=== PATIENT | female | born 1970 | race Caucasian/White ===

== ENCOUNTER 2021-05-11 06:07 | Day surgery (SDC) | payer OTHER, SELFPAY ==
[~2021-05-11] VITALS: Ht 157.5 cm; Wt 66.7 kg
[2021-05-11] MEDS ORDERED: LIDOCAINE 2% 100 MG/5 ML UJET TP ONE (07:37)
[2021-05-11] MEDS ORDERED: fentaNYL citrate 0.05 MG/ML VIAL ONE (07:37)
[2021-05-11] MEDS ORDERED: fentaNYL citrate 0.05 MG/ML VIAL IVP ONE ×2 (08:20→09:45)
[2021-05-11] MEDS ORDERED: SIMETHICONE 40 MG/0.6 ML PO PRN (08:20)
== END 2021-05-11 09:10 | disposition home or self-care (01) ==
LOC: MDS 06:07 → MMU 06:08 → MDS 09:10
PROVIDERS: ATTEND Internal Medicine Gastroenterology
DX: Z12.11 Encounter for screening for malignant neoplasm of colon (principal); K57.30 Diverticulosis of large intestine without perforation or abscess without bleeding; I10 Essential (primary) hypertension; Z79.899 Other long term (current) drug therapy; Z20.822 Contact with and (suspected) exposure to COVID-19
CPT/HCPCS: 45378; 87426; J3010